=== PATIENT | male | born 1970 | race Caucasian/White ===

== ENCOUNTER → 2024-09-08 | Outpatient (CLI) | payer OTHER ==
--- NOTE | 2024-09-08 15:41 | XR ---
EXAMINATION TYPE: XR hand complete RT DATE OF EXAM: 09/08/2024 3:36 PM COMPARISON: None CLINICAL INDICATION: Male, 54 years old with history of M65.351 TRIGGER FINGER, RIGHT LITTLE FINGER; PHH, pain TECHNIQUE: XR hand complete RT 3views were obtained. FINDINGS: Normal alignment of the visualized joints. No acute osseous pathology is identified. No e vidence of soft tissue swelling. Multifocal degeneration changes with joint space narrowing and osteo phyte formation. IMPRESSION: 1. No acute osseous pathology. 2. Multifocal osteoarthrosis throughout the joints of the hand. [facility], Workstation: [facility], 09/08/2024 3:38 PM
== END | disposition home or self-care (01) ==
LOC: RADXRMAIN 15:13
PROVIDERS: ATTEND Emergency Medicine
DX: M65.351 Trigger finger, right little finger (principal); M19.041 Primary osteoarthritis, right hand

== ENCOUNTER → 2024-12-10 | Outpatient (CLI) | payer MEDICARE, OTHER ==
--- NOTE | 2024-12-10 17:16 | MR ---
EXAMINATION TYPE: MR lumbar spine wo con DATE OF EXAM: 12/10/2024 4:48 PM COMPARISON: None. CLINICAL INDICATION: Male, 54 years old with history of M54.16 RADICULOPATHY, LUMBAR REGION, Pain in both legs and hips x8-10 months IV Contrast: cc (None if empty) TECHNIQUE: Multiplanar, multisequence images of the lumbar spine were acquired without IV contrast. There appears to be transitional segment with partial lumbarization of S1 and rudimentary S1-S2 disc. Prior to any schedule intervention radiographic correlation is recommended. L1-L2: Mild disc desiccation with posterior disc bulge. Minimal effacement ventral thecal sac. No lucy dence for herniation or central stenosis. Ventral spondylosis. No canal stenosis is present. Foramin a are patent bilaterally. L2-L3: Mild disc desiccation with posterior disc bulge. Minimal effacement ventral thecal sac. No lucy dence for herniation or central stenosis. Ventral spondylosis. No canal stenosis is present. Foramin a are patent bilaterally. L3-L4: Mild disc desiccation with posterior disc bulge. Minimal effacement ventral thecal sac. No lucy dence for herniation or central stenosis. Ventral spondylosis. No canal stenosis is present. Foramin a are patent bilaterally. L4-L5: Moderate disc desiccation compatible with degenerative disc disease. There is an extruded disc herniation posterocentrally into the left with sequestered disc component posterior to the inferior endplate of L4 to the right of midline. Sequestered component measures 1.5 x 1.0 cm and results in se ruby central stenosis at this level. There is trefoling of the cauda equina. L5-S1: Moderate disc desiccation with posterior disc bulge. Effacement of the ventral thecal sac with mild central stenosis. Bilateral lateral recess stenosis and bilateral foraminal encroachment apprec iated. Lumbar segments are intact. No paraspinal masses are identified. Conus medullaris has a normal appe arance. IMPRESSION: 1. 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 [facility], , 12/10/2024 5:14 PM
== END | disposition home or self-care (01) ==
LOC: RADMRIMAIN 15:59
PROVIDERS: ATTEND Family Medicine
DX: M51.16 Intervertebral disc disorders with radiculopathy, lumbar region (principal); M48.061 Spinal stenosis, lumbar region without neurogenic claudication
CPT/HCPCS: 72148

== ENCOUNTER → 2024-12-21 | Outpatient (CLI) | payer OTHER ==
[2024-12-21 18:45] LABS: Basophils # (A) 0.06 X 10*3/uL (0.00-0.10); Basophils % (A) 0.5 %; Eosinophils # (A) 0.84 X 10*3/uL (0.04-0.35); Eosinophils % (A) 6.6 %; HCT 50.2 % (39.6-50.0); HGB 16.7 g/dL (13.0-17.0); Lymphocytes # (A) 3.98 X 10*3/uL (0.90-5.00); Lymphocytes % (A) 31.4 %; MCH 31.7 pg (27.0-32.0); MCHC 33.3 g/dL (32.0-37.0); MCV 95.4 FL (80.0-97.0); Mean Platelet Volume 11.4 FL (9.5-12.2); Monocytes % (A) 7.9 %; NRBC Per 100 WBC 0 X 10*3/uL (0.00-0.01); Neutrophils # (A) 6.76 X 10*3/uL (1.80-7.70); Neutrophils % (A) 53.4 %; Platelet Count 225 X 10*3/uL (140-440); RBC 5.26 X 10*6/uL (4.40-5.60); RDW 13.4 % (11.5-14.5); WBC 12.67 X 10*3/uL (4.50-10.00)
[2024-12-21 19:05] LABS: Blood Urea Nitrogen 21.8 mg/dL (9.0-27.0); Glucose 97 mg/dL (70-110); Sodium 138 mmol/L (135-145)
[2024-12-21 19:06] LABS: ALT 92 U/L (10-49); AST 56 U/L (14-35); Albumin 4.1 g/dL (3.8-4.9); Albumin/Globulin Ratio 1.64 Ratio (1.60-3.17); Alkaline Phosphatase 94 U/L (41-126); Calcium 9.2 mg/dL (8.7-10.3); Carbon Dioxide 25.7 mmol/L (21.6-31.8); Chloride 105 mmol/L (96-109); Globulin 2.5 g/dL (1.6-3.3); Potassium 5.5 mmol/L (3.5-5.5); Total Bilirubin <0.2 mg/dL (0.3-1.2); Total Protein 6.6 g/dL (6.2-8.2)
== END | disposition home or self-care (01) ==
LOC: LABWHC1 16:11
PROVIDERS: ATTEND Nurse Practitioner Family
DX: B18.2 Chronic viral hepatitis C (principal)
CPT/HCPCS: 36415; 80053; 81596; 82105; 85025; 87522

== ENCOUNTER → 2025-04-10 | Outpatient (CLI) | payer OTHER ==
[2025-04-10 13:53] LABS: ALT 17 U/L (10-49); AST 17 U/L (14-35); Blood Urea Nitrogen 12.3 mg/dL (9.0-27.0); Calcium 9.4 mg/dL (8.7-10.3); Magnesium 1.8 mg/dL (1.5-2.4); Potassium 4.3 mmol/L (3.5-5.5); Sodium 135 mmol/L (135-145); Vitamin B12 499.0 pg/mL (200.0-944.0)
== END | disposition home or self-care (01) ==
LOC: LABWHC1 10:30
PROVIDERS: ATTEND Psychiatry & Neurology Neurology
DX: B18.2 Chronic viral hepatitis C (principal); M62.838 Other muscle spasm
CPT/HCPCS: 36415; 82310; 82565; 82607; 83735; 84100; 84132; 84295; 84450; 84460; 84520